=== PATIENT | female | born 1965 | race Caucasian/White ===

== ENCOUNTER 2016-12-06 16:12 | Outpatient (CLI) | payer OTHER | END 2016-12-06 16:13 | LOC: LABRHC 16:12 | PROVIDERS: ATTEND Family Medicine | DX: Z12.4 Encounter for screening for malignant neoplasm of cervix (principal) | CPT/HCPCS: 88148; G0143 ==

== ENCOUNTER 2018-01-02 09:50 | Outpatient (CLI) | payer OTHER ==
[2018-01-02 10:36] LABS: eGFR (African) > 60; eGFR (Non-African) > 60
== END 2018-01-02 09:52 ==
LOC: LAB 09:50
PROVIDERS: ATTEND Family Medicine
DX: Z00.00 Encounter for general adult medical examination without abnormal findings (principal)
CPT/HCPCS: 36415; 80053; 80061

== ENCOUNTER 2019-03-13 08:57 | Outpatient (CLI) | payer OTHER ==
[2019-03-13 09:27] LABS: BASOPHILS % 0.4 % (0.0-1.5)
[2019-03-13 09:28] LABS: NEUTROPHILS # 4.6 # k/uL (1.4-7.7)
[2019-03-13 10:14] LABS: HDL 49 mg/dL (>40)
[2019-03-13 10:42] LABS: eGFR (Non-African) > 60
== END 2019-03-13 09:00 ==
LOC: LAB 08:57
PROVIDERS: ATTEND Family Medicine
DX: Z13.220 Encounter for screening for lipoid disorders (principal)
CPT/HCPCS: 36415; 80053; 80061; 84443; 85025